=== PATIENT | male | born 1960 | race Caucasian/White ===

== ENCOUNTER 2023-05-15 16:00 | Emergency (ER) | payer BC, OTHER ==
[~2023-05-15 16:00] MED LIST: Iopamidol-370 76% 500 ML MDV (1 ML CHARGE) ONE
[2023-05-15 16:35] LABS: #Basophils 0.1 thou/uL (0.0-0.2); #Eosinphils 0.2 thou/uL (0.0-0.7); #Monocytes 0.9 thou/uL (0.11-0.59); #Neutrophils 7.2 thou/uL (1.40-6.50); %Basophils 0.6 % (0.0-1.0); %Eosinophils 1.4 % (0.0-10.0); %Lymphocytes 22.9 % (21.0-51.0); %Monocytes 8.6 % (0.0-10.0); %Neutrophils 66.1 % (42.0-75.0); Mean Corpuscular HGB CONC 34.2 g/dL (32.0-36.0); Mean Corpuscular Hemoglobin 29.7 pg (27.0-31.0); Mean Platelet Volume 9.9 fL (7.4-10.4); Platelet Count 217 10x3/uL (130-400); RBC Distribution Width 13.4 % (11.5-14.5); Red Blood Cell (RBC) Count 5.38 mill/uL (4.70-6.10); White Blood Cell (WBC) Count 10.9 10x3/uL (4.8-10.8)
[2023-05-15 16:58] LABS: ALT (SGPT) 20 U/L (8-55); AST (SGOT) 16 U/L (5-34); Albumin 3.8 g/dL (3.4-4.8); Alkaline Phosphatase 85 U/L (40-110); Anion Gap 16 mmol/L (10-20); BUN (Urea Nitrogen) 9 mg/dL (8.4-25.7); Bilirubin, Total 0.7 mg/dL (0.2-1.2); Calc. Creatinine Clearance 0 mL/min (70-130); Calcium 8.9 mg/dL (7.8-10.44); Carbon Dioxide 26 mmol/L (23-31); Chloride 91 mmol/L (98-107); Estimated GFR 75; Globulin 3.4 g/dL (2.4-3.5); Lipase 10 U/L (8-78); Potassium 3.2 mmol/L (3.5-5.1); Protein, Total 7.2 g/dL (5.8-8.1); Sodium 130 mmol/L (136-145)
[2023-05-15 17:45] LABS: Glucose 517 mg/dL (80-115)
[2023-05-15] MEDS ORDERED: Morphine 4 MG/ML VIAL ONE (18:48)
[2023-05-15] MEDS ORDERED: Ondansetron PF 4 MG/2 ML Vial ONE (18:49)
[2023-05-15 20:03] LABS: Bacteria/HPF None Seen HPF (None Seen); Bilirubin Negative (Negative); Blood, Urine Negative (Negative); CAUTI Indications for Culture Pelvic or flank pain; Clarity Clear (Clear); Glucose, Urine (Dipstick) Greater than 1000 mg/dL (Negative); Ketone, Urine 20 mg/dL (Negative); Leukocyte Negative Leu/uL (Negative); Nitrite Negative (Negative); Protein, Urine (Dipstick) 10 mg/dL (Neg-Trace); RBC/HPF 0-3 HPF (0-3); Squamous Epithelial 0-3 HPF (0-3); Urobilinogen Normal mg/dL (Less than 2); WBC/HPF 0-3 HPF (0-3); Yeast-Budding 1+ HPF (None Seen)
[2023-05-15 20:11] LABS: Specific Gravity, Urine Greater than 1.060 (1.002-1.036)
[2023-05-15 20:13] LABS: Urine Culture Reflex No No
== END 2023-05-15 20:30 | disposition home or self-care (01) ==
LOC: ERS 16:00
DX: N28.89 Other specified disorders of kidney and ureter (principal); A09 Infectious gastroenteritis and colitis, unspecified; B37.9 Candidiasis, unspecified; R73.9 Hyperglycemia, unspecified; D72.829 Elevated white blood cell count, unspecified
CPT/HCPCS: 36415; 36416; 74177; 80053; 81001; 83690; 85025; 96361; 96374; 96375; J2270; J2405; Q9967